=== PATIENT | male | born 1940 | race Caucasian/White ===

== ENCOUNTER → 2016-05-02 | Outpatient (CLI) | payer OTHER ==
[~2016-05-02] MED LIST: ASPIRIN EC81 M1 PO; LIPITOR80 MG PO; LISINOPRIL20 MG PO; OMEGA-31000 M1 PO; VIAGRA
== END ==
LOC: HYPER 07:00
DX: T81.89XD Other complications of procedures, not elsewhere classified, subsequent encounter (principal); D03.30 Melanoma in situ of unspecified part of face; Z85.46 Personal history of malignant neoplasm of prostate; Z72.89 Other problems related to lifestyle; Y83.8 Other surgical procedures as the cause of abnormal reaction of the patient, or of later complication, without mention of misadventure at the time of the procedure